=== PATIENT | female | born 1945 | race Caucasian/White ===

== ENCOUNTER → 2018-07-29 | Outpatient (CLI) | payer MEDICARE ==
--- NOTE | 2018-07-30 11:22 | MM ---
Reason for exam: screening (asymptomatic). Last mammogram was performed 1 year and 3 months ago. History: Patient is postmenopausal. Family history of breast cancer in maternal aunt at age 50. Benign right mammotome panel of the right breast, June 04, 2005. Took estrogen for 6 years. Physical Findings: A clinical breast exam by your physician is recommended on an annual basis and results should be correlated with mammographic findings. MG 3D Screening Mammo W/Cad Bilateral CC and MLO view(s) were taken. Prior study comparison: April 26, 2017, mammogram, performed at [place]. March 30, 2016, mammogram, performed at [place]. December 15, 2014, mammogram, performed at [place]. The breast tissue is heterogeneously dense. This may lower the sensitivity of mammography. There are benign appearing round vascular calcifications bilaterally. Previous mammotome biopsy in the right breast. There is chronic nodularity bilaterally. There is no discrete abnormality. ASSESSMENT: Benign, BI-RAD 2 RECOMMENDATION: Routine screening mammogram of both breasts in 1 year.
== END | disposition home or self-care (01) ==
LOC: RADMAMWWP 11:18
PROVIDERS: ATTEND Internal Medicine
DX: Z12.31 Encounter for screening mammogram for malignant neoplasm of breast (principal)
CPT/HCPCS: 77063; 77067

== ENCOUNTER → 2019-10-27 | Outpatient (CLI) | payer MEDICARE ==
--- NOTE | 2019-10-28 12:07 | MM ---
Reason for exam: screening (asymptomatic). Last mammogram was performed 1 year and 3 months ago. History: Patient is postmenopausal. Family history of breast cancer in maternal aunt at age 50. Benign right mammotome panel of the right breast, June 04, 2005. Took estrogen for 6 years. Physical Findings: A clinical breast exam by your physician is recommended on an annual basis and results should be correlated with mammographic findings. MG 3D Screening Mammo W/Cad Bilateral CC and MLO view(s) were taken. Prior study comparison: July 29, 2018, bilateral MG 3d screening mammo w/cad. April 26, 2017, mammogram, performed at [place]. The breast tissue is heterogeneously dense. This may lower the sensitivity of mammography. Finding #1: There is a new 12 mm circumscribed oval mass located 7-8 cm from the nipple in the posterior, central position of the left breast. Finding #2: There are typically benign vascular, round calcifications in both breasts, greater in the right breast. There is a chronic nodularity bilaterally. New finding since July 29, 2018 and April 26, 2017. ASSESSMENT: Incomplete: need additional imaging evaluation, BI-RAD 0 RECOMMENDATION: Ultrasound of the left breast. [facility] will attempt to contact patient to return for ultrasound.
== END | disposition home or self-care (01) ==
LOC: RADMAMWWP 13:00
PROVIDERS: ATTEND Internal Medicine
DX: Z12.31 Encounter for screening mammogram for malignant neoplasm of breast (principal)
CPT/HCPCS: 77063; 77067

== ENCOUNTER → 2019-11-03 | Outpatient (CLI) | payer MEDICARE ==
--- NOTE | 2019-11-03 11:52 | USB ---
Reason for exam: additional evaluation requested from abnormal screening. History: Patient is postmenopausal. Family history of breast cancer in maternal aunt at age 50. Benign right mammotome panel of the right breast, June 04, 2005. Took estrogen for 6 years. Physical Findings: Nurse did not find any significant physical abnormalities on exam. US Breast Workup Limited LT Left limited breast ultrasound including focal area of concern, retroareolar and axilla demonstrates a 1.0 x 0.3 x 1.0cm at 6 o'clock. These results were verbally communicated with the patient and result sheet given to the patient on 11/03/19. ASSESSMENT: Benign, BI-RAD 2 RECOMMENDATION: Return to routine screening mammogram schedule for both breasts.
== END | disposition home or self-care (01) ==
LOC: RADUSWWP 10:19
PROVIDERS: ATTEND Internal Medicine
DX: R92.8 Other abnormal and inconclusive findings on diagnostic imaging of breast (principal)

== ENCOUNTER → 2020-04-11 | Outpatient (CLI) | payer MEDICARE ==
[2020-04-11 18:15] LABS: Chol/HDL Ratio 2.75; LDL Cholesterol,Calculated 106.2 mg/dL (0.0-131.0); VLDL Calculation 14.8 mg/dL (5.00-40.00)
== END | disposition home or self-care (01) ==
LOC: LABWHC1 09:51
PROVIDERS: ATTEND Internal Medicine
DX: I10 Essential (primary) hypertension (principal); E55.9 Vitamin D deficiency, unspecified
CPT/HCPCS: 36415; 80061; 82306

== ENCOUNTER → 2020-04-11 | Outpatient (CLI) | payer MEDICARE ==
[2020-04-11 11:05] LABS: HCT 39.6 % (34.0-46.0); HGB 13.1 gm/dL (11.4-16.0); MCH 29.8 pg (25.0-35.0); MCHC 33.1 g/dL (31.0-37.0); Mean Platelet Volume 6.9; Platelet Count 326 k/uL (150-450); RDW 13.4 % (11.5-15.5); WBC 5.9 k/uL (3.8-10.6)
[2020-04-11 11:20] LABS: ALT 24 U/L (4-34); AST 26 U/L (14-36); African American GFR (CKD) >90 (>60 ml/min/1.73 sqM); Albumin 4.3 g/dL (3.5-5.0); Alkaline Phosphatase 121 U/L (38-126); Anion Gap 8 mmol/L; Blood Urea Nitrogen 24 mg/dL (7-17); Calcium 9.7 mg/dL (8.4-10.2); Carbon Dioxide 25 mmol/L (22-30); Chloride 106 mmol/L (98-107); Glucose 118 mg/dL (74-99); Non-African American GFR(CKD) >90 (>60 ml/min/1.73 sqM); Potassium 4.4 mmol/L (3.5-5.1); Sodium 139 mmol/L (137-145); Total Bilirubin 0.4 mg/dL (0.2-1.3); Total Protein 7.1 g/dL (6.3-8.2)
[2020-04-11 11:25] LABS: INR 0.9 (<1.2); Partial Thromboplastin Time 22.6 sec (22.0-30.0); Prothrombin Time 9.4 sec (9.0-12.0)
[2020-04-11 11:35] LABS: Appearance,Urine Clear (Clear); Bilirubin,Urine Negative (Negative); Blood,Urine Small (Negative); Color,Urine Light Yellow; Glucose,Urine (UA) Negative (Negative); Ketones,Urine Negative (Negative); Leukocyte Esterase,Urine Negative (Negative); Mucus,Urine Rare /hpf; Nitrite,Urine Negative (Negative); PH, Urine 5.5 (5.0-8.0); Protein,Urine Negative (Negative); RBC,Urine 3 /hpf (0-5); Specific Gravity,Urine 1.016 (1.001-1.035); Squamous Epithelial Cell,Urine 1 /hpf (0-4); Urobilinogen,Urine <2.0 mg/dL (<2.0); WBC,Urine 1 /hpf (0-5)
== END | disposition home or self-care (01) ==
LOC: LABPAT 09:49
PROVIDERS: ATTEND Orthopaedic Surgery Sports Medicine
DX: Z01.818 Encounter for other preprocedural examination (principal); Z01.812 Encounter for preprocedural laboratory examination; M17.12 Unilateral primary osteoarthritis, left knee; Z79.01 Long term (current) use of anticoagulants
CPT/HCPCS: 36415; 80053; 81001; 85027; 85610; 85730; 87070

== ENCOUNTER 2020-04-21 12:42 | Day surgery (SDC) | payer MEDICARE ==
[~2020-04-21 12:42] MED LIST: ACETAMINOPHEN TAB 325 MG TAB PO PRN; ACETAMINOPHEN TAB 500 MG TAB PO ONE; GABAPENTIN 300 MG CAP PO ONE; HYDROcodone/APAP 10-325MG 1 EACH TAB PO PRN; HYDROcodone/APAP 5-325MG 1 EACH TAB PO PRN; HYDROmorphone 0.5 MG/0.5 ML SYRINGE IVP PRN; MAGNESIUM HYDROXIDE 2,400 MG/10 ML CUP PO PRN; MELOXICAM 7.5 MG TAB PO ONE; NA PHOS,M-B/NA PHOS,DI-BA 133 ML ENEMA RECTAL PRN; NALOXONE 0.4 MG/ML 1 ML VIAL IV PRN; ONDANSETRON 4 MG/2 ML VIAL IVP ONE; ONDANSETRON 4 MG/2 ML VIAL IVP PRN; ROPIVACAINE 246.25 MG, EPINEPHrine 0.5 MG, KETOROLAC 30 MG, cloNIDine HCL/PF 80 MCG, WA... MISCELLANE ONE; TEMAZEPAM 15 MG CAP PO PRN; TRANEXAMIC ACID 1,000 MG in SODIUM CHLORIDE 0.9% 100 ML IVPB ONE; bisacodyL 10 MG SUPP RECTAL PRN; diazePAM 5 MG TAB PO PRN; traMADol 50 MG TAB PO PRN
[2020-04-21] MEDS: LACTATED RINGERS 1,000 ML IV SCH ×2 (13:25→17:11)
[2020-04-21] MEDS ORDERED: LIDOCAINE 1% (10MG/ML) FOR IV START INTRADERMA ONE (13:26)
[2020-04-21] MEDS ORDERED: ACETAMINOPHEN TAB 500 MG TAB ONE (13:29)
[2020-04-21] MEDS ORDERED: ONDANSETRON 4 MG/2 ML VIAL ONE (13:29)
[2020-04-21] MEDS ORDERED: MIDAZOLAM 2 MG/2 ML VIAL IV ONE (13:52)
[2020-04-21] MEDS ORDERED: fentaNYL (PF) 50 MCG/ML 2 ML AMP IV ONE (13:52)
[2020-04-21] MEDS ORDERED: MIDAZOLAM 2 MG/2 ML VIAL ONE (14:43)
[2020-04-21] MEDS ORDERED: TRANEXAMIC ACID 1,000 MG/10 ML VIAL ONE (14:43)
[2020-04-21] MEDS ORDERED: SODIUM CHLORIDE 0.9% 100 ML BAG ONE (14:43)
[2020-04-21] MEDS ORDERED: PROPOFOL 10 MG/ML 20 ML VIAL IV ONE (14:43)
[2020-04-21] MEDS ORDERED: PHENYLEPHRINE-0.9% NACL SYG 1 MG/10 ML SYRINGE ONE (14:43)
[2020-04-21] MEDS ORDERED: LACTATED RINGERS 1,000 ML IV ONE (15:02)
--- NOTE | 2020-04-21 15:59 | P.ANPRN ---
Procedure Note - Anesthesia - Nerve Block Performed Left Adductor Canal Infusion Time Out Performed: Yes Date of Procedure: 04/21/20 Procedure Start Time: 13:51 Procedure Stop Time: 14:00 Location of Patient: PreOp Indication: Acute Post-Operative Pain, Dx/Pain Location (Left Knee Pain), Requested by Surgeon Sedation Type: Awake Preparation: Sterile Prep, Sterile Dressing Position: Supine Catheter: Indwelling Needle Types: Pajunk Needle Gauge: 21 Ultrasound used to visualize needle placement: Yes Ultrasound used to observe medication spread: Yes Injectate: 0.5% Ropivacaine (see comment for volume) (20ml) Blood Aspirated: No Pain Paresthesia on Injection Noted: No Resistance on Injection: Normal Image Stored and Saved: Yes Events: Uneventful and Well Tolerated
--- NOTE | 2020-04-21 16:49 | XR ---
EXAMINATION TYPE: XR knee limited LT DATE OF EXAM: 04/21/2020 CLINICAL HISTORY: Left knee pain and arthritis status post total knee replacement. TECHNIQUE: Portable AP and crosstable lateral views of the left knee are obtained immediately postop eratively. COMPARISON: None FINDINGS: [place] osseous structures are demineralized. Metallic hardware from total left knee arthrop lasty is seen and appears satisfactory in alignment and position. There is evidence of recent surger y with diffuse subcutaneous gas and soft tissue swelling noted. IMPRESSION: METALLIC HARDWARE FROM TOTAL LEFT KNEE ARTHROPLASTY IS SATISFACTORY IN ALIGNMENT.
[2020-04-21] MEDS: ROPIVACAINE 0.2%-NS ON-Q PUMP 1,090 MG, EMPTY PAIN BALL 1 EACH MISCELLANE PRN ×3 (17:14→17:48)
[2020-04-21] MEDS: ASPIRIN 81 MG PO SCH (20:37)
[2020-04-21] MEDS ORDERED: SENNOSIDES-DOCUSATE SODIUM 1 EACH TAB PO SCH (21:00)
--- NOTE | 2020-04-21 22:04 | OP ---
OPERATIVE REPORT DATE OF PROCEDURE: 04/21/2020 SURGEON: Jarad Jules M.D. LEGAL PROCESS SPECIALIST: Stanley Tony PA-C. PREOPERATIVE DIAGNOSIS: Left knee osteoarthrosis. POSTOPERATIVE DIAGNOSIS: Left knee osteoarthrosis. OPERATION: Left total knee arthroplasty. ANESTHESIA: Spinal with sedation. ESTIMATED BLOOD LOSS: 50 mL. TOURNIQUET: Tourniquet time was 40 minutes at 250 mmHg. COMPLICATIONS: None apparent. DRAINS: None. DISPOSITION: Post-Anesthesia Care Unit INDICATIONS: Willow is a very pleasant 74-year-old female with longstanding history of left knee pain. History and physical examination are consistent with advanced left knee osteoarthrosis. She has been through significant nonoperative management up to this point. Further treatment options were discussed, and she decided to go forward with left total knee arthroplasty. The risks of procedure were discussed with her in detail. These risks include but are not limited to risk of infection, nerve damage, bleeding, pain, and a small risk of deep vein thrombosis which could lead to fatal pulmonary embolism. There is also a risk of loosening of the implant which could require revision operation. The patient understands these risks. All of her questions were answered to her satisfaction. Appropriate informed consent was obtained. DESCRIPTION OF THE PROCEDURE: The patient was identified in the preoperative holding area. Surgical site was marked by both the patient and myself. She was given 2 grams of Ancef IV for prophylactic purposes. She was then transferred to the operative suite. She was placed supine on the operating room table. A spinal anesthetic was then administered and dosed per the anesthesia department without apparent complication. Examination under anesthesia was then performed. The patient was 2 to 3 degrees shy of full extension. She had 100 degrees of flexion, and the medial collateral ligament, lateral collateral ligament and posterior cruciate ligaments were stable. Tourniquet was then placed high on the left upper thigh, well padded in preparation for surgery. The patient's left lower extremity was then prepped and draped in the usual sterile fashion. A standard surgical pause was then undertaken to ensure that we were operating on the correct site and that appropriate preoperative antibiotics had been given. All staff in the room were in agreement and we proceeded. The outlines of the patella were marked with a surgical pen. A planned 12 cm vertical incision centered over the patella was marked with a surgical pen. The leg was then exsanguinated with an Esmarch dressing. The knee was then flexed and the tourniquet was inflated to 250 mmHg. The total tourniquet time for the procedure was 40 minutes. Incision was then made with a 10-blade scalpel. Dissection was carried down sharply to the overlying fascia. Great care was taken to minimize the skin flaps. The knee was then exposed using a standard medial parapatellar approach. A small cuff of quadriceps tendon was then left for suturing. She was in a bit of varus preoperatively. A standard medial release was then made. Superficial medial collateral ligament was dissected off of the bone and around to the posterior aspect of the proximal tibia. The medial meniscus was then excised as well. The lateral meniscus was also released anteriorly. The leg was then externally rotated. The patella was everted. The knee was flexed. The retractors were then placed to protect the collateral ligaments. I then proceeded to remove the infrapatellar fat pad. This was excised sharply tangentially with the fibers of the patellar tendon. I then proceeded to remove the peripheral osteophytes. This was done with a rongeur. I then proceeded with the distal femoral resection. She did have near-full extension. A planned 9 mm resection was then done. The femoral canal was then entered in the midline of the femur approximately 10 mm anterior to the origin of the posterior cruciate ligament. The wenceslao was then advanced down to the center of the femur and placed intramedullary. Based on the preoperative radiographs, the angle between the anatomic and mechanical axis of the femur was approximately 4-5 degrees. The valgus angle of the distal femoral cutting guide was then set at 4 degrees for the left knee. The distal femoral cutting guide was then advanced over the intramedullary wenceslao. This was seated firmly against the femur. I then, as mentioned, planned to take 9 mm off the distal femur. The cutting block was then secured onto the femur with pins. The jig was then removed and the distal femoral cut was made through the slot of the block. The pins were then removed and the distal femoral cutting block was removed. The accuracy of the distal femoral cuts was checked with 2 flat bars. I then proceeded with femoral sizing. The posterior referencing sizing guide was held firmly against the resected distal surface of the femur. The posterior condyles were resting on the posterior plane of the guide. The sizing stylus was then placed onto the anterior femur. The size was measured as a size 5. I then assessed for femoral rotation. The plan was for 3 degrees of external rotation. Three degrees of external rotation was placed onto the jig. These holes were then marked. I then confirmed the rotation by 3 separate methods. This was done using the epicondylar axis as well as [place] line and posterior referencing. It was deemed that the external rotation was proper. I then went forward with placing the femoral cutting block. This was placed over the previously placed pin holes. The [place] wing was then placed onto the anterior slots to ensure that we would not notch the anterior femur with the anterior femoral cut. I then proceeded with the anterior femoral cut. This was flush with the anterior cortex of the femur. Posterior cuts were then made followed by the anterior chamfer cut, and then the posterior chamfer cut. The cutting block was then removed. Throughout the resection, the collateral ligaments were protected with retractors. I then placed a trial size 5 femur. It was slightly wide medial to lateral, but the narrow was appropriate and fit flush with the distal end of the femur. The drill holes were then made. I then proceeded with the tibial cut. I planned for a cruciate-retaining knee. The guide was placed and set for varus, valgus and for slope. The height was set for an approximate 2 mm resection from the medial tibial plateau, which was the lower side. I was happy with the alignment and the amount of resection. The cutting block was then pinned to the proximal tibia. The alignment wenceslao was removed and the proximal tibia was resected with a reciprocating saw. Again this was done with retractors protecting the collateral ligaments as well as the posterior cruciate ligament. I then proceeded to evaluate the flexion and extension gaps. A 10 mm block was then placed. The flexion and extension gaps were equal. I then proceeded with resection of the posterior osteophytes. She had very minimal posterior osteophytes. This was done using a curved osteotome. This resected the posterior osteophytes, and posterior capsule stripping was done off the posterior aspect of the femur at this time. The osteophytes were then removed. I then proceeded with resection of the patella. The thickness of the patella was measured using the caliper. The thickness was 22 mm. Thickness of the anticipated patellar dome was then taken into account. Resection was then performed and confirmed to be equal in 4 quadrants using a caliper. Approximately 14 mm of bone remained after resection. A 26 x 7.5 standard patellar trial was then placed. The holes were drilled and the trial was then placed. I then proceeded with sizing the tibial plate. A size C tibial plate fit very nicely. I then placed the trial femur and the tibial tray and the patellar button. A 10 mm trial tibial insert was also placed. The components fit very nicely. She had full extension and flexion. The extension and flexion gaps were equal and stable to both varus and valgus stress. The patella tracked appropriately. Tibial tray rotation was then marked with a Bovie. This was externally rotated properly. I then proceeded with tibial preparation. I first drilled the femoral holes and removed the femoral component. The tibial tray was then set for proper external rotation as well as mediolateral placement onto the tibia. It was then pinned into place. I then proceeded with punching the keel. I then decided to proceed with cementing of all of our components. The knee was thoroughly irrigated with sterile saline solution via pulse lavage. The lateral geniculate artery was identified and cauterized. All blood was removed from the bone of the tibia, femur and patella with pulse lavage. I then proceeded with cementing. Two packs of antibiotic bone cement were prepared on the back table by the endoscopy tech. I then proceeded with cementing of the tibia first. The cement was impacted into the keel as well as deeply seated into the bone. A second coat of cement was then placed. The tibia was then impacted into place. Excess cement was removed with Maye's and jokers. I then proceeded with cementing of the femoral component. The femoral component was also cemented using standard technique. Excess cement was removed. A 10 mm trial insert was then placed into the knee. It was brought into full extension with a constant axial load placed until the cement had hardened. The patellar component was then cemented. This was held firmly with a compressive device until the cement had dried. When the cement had dried, the knee was taken out of extension. All excess cement was removed from around the prosthesis. I then trialed the knee with a 10 mm insert. The flexion and extension gaps were appropriate. The knee was stable. It came into full extension. I decided to go forward with a 10 mm cross-linked cruciate-retaining tibial insert. Polyethylene was then placed onto the tray and locked into place. The knee was then reduced. The knee was again further irrigated with sterile saline solution with antibiotic added. The tourniquet was then deflated. The total tourniquet time for the procedure was 40 minutes at 250 mmHg. Final components were a Alice Persona size 5 narrow cruciate-retaining femoral component, a size C tibial tray, a 10 mm medial- congruent cruciate-retaining polyethylene insert, and a 26 x 7.5 mm patella. I then proceeded with closure. Again the knee was thoroughly irrigated. The quadriceps tendon and the medial retinaculum were reapproximated with #2 Ethibond suture. The extensor mechanism was then closed with a running #2 Quill suture. Subcutaneous tissues were closed with 2-0 Vicryl interrupted suture. The skin was closed with a running 3-0 Quill suture. Dermabond was applied to the incision. Sterile compressive dressings were then applied. All sponge and needle counts were deemed correct prior to closure. The patient tolerated the procedure without apparent complication. She was transferred to the recovery room in stable condition. MMODL / IJN: [id number] /
[2020-04-22] MEDS: LACTATED RINGERS 1,000 ML IV SCH ×4 (01:41→08:46)
--- NOTE | 2020-04-22 06:11 | P.PN ---
Progress Note - Text Progress Note Date: 04/22/20 74-year-old female status post total knee arthroplasty with On-Q pain pump. Overall doing well VAS 1/10 in severity. She's been ambulating, good range of motion with her knee already. Tolerating diet well. Patient progressing well. Surgical incision and On-Q insertion site looks clean dry and intact
[2020-04-22 06:16] LABS: Basophils % (A) 0 %; Eosinophils # (A) 0.2 k/uL (0-0.7); Eosinophils % (A) 2 %; HCT 34.2 % (34.0-46.0); HGB 11.1 gm/dL (11.4-16.0); Lymphocytes # (A) 1.2 k/uL (1.0-4.8); Lymphocytes % (A) 15 %; MCH 29.7 pg (25.0-35.0); MCHC 32.5 g/dL (31.0-37.0); MCV 91.3 fL (80.0-100.0); Mean Platelet Volume 6.9; Monocytes # (A) 0.5 k/uL (0-1.0); Monocytes % (A) 6 %; Neutrophils # (A) 6.4 k/uL (1.3-7.7); Neutrophils % (A) 76 %; Platelet Count 244 k/uL (150-450); RBC 3.74 m/uL (3.80-5.40); RDW 13.5 % (11.5-15.5); WBC 8.5 k/uL (3.8-10.6)
[2020-04-22] MEDS: ASPIRIN 81 MG PO SCH (08:51)
--- NOTE | 2020-04-22 09:15 | P.DS ---
Providers Expected date of discharge: 04/22/20 Attending physician: Jarad Jules Consults: 04/21/20 12:21 Consult Physician Routine Consulting Provider: Olivia Bartlett Consult Reason/Comments: post op medical management Do you want consulting provider notified?: Yes Primary care physician: Stated None - Discharge Diagnosis(es) (1) S/P total knee arthroplasty Patient was admitted to the OR on 04/21/2020 to undergo a left total knee arthroplasty. She had failed conservative measures as an outpatient and desired to proceed with elective surgery after given informed consent. She underwent the above procedure which she tolerated well without complication. Postoperative hospital course has remained without complication. On day of discharge she is afebrile, vital signs stable, labs within acceptable ranges, tolerating by mouth meds and diet, voiding without difficulty, positive flatus, denies abdominal pain or calf pain, pain is controlled on oral pain medication and has no new complaints. Wound is benign, neurovascular status is intact, calf is soft and nontender, abdomen soft and nontender. Review of systems is negative for numbness, tingling, fever, chills, chest pain, shortness of breath, nausea, vomiting, dizziness, headaches, slurred speech or other Current Visit: Yes Status: Acute Priority: Medium Procedures: Left TKA Patient Condition at Discharge: Good Plan - Discharge Summary Discharge Rx Participant: Yes New Discharge Prescriptions: New Aspirin [Adult Low Dose Aspirin EC] 81 mg PO BID #60 tablet. HYDROcodone/APAP 7.5-325MG [[place] 7.5-325] 1 - 2 each PO Q6HR PRN #56 tab PRN Reason: Pain No Action Cholecalciferol (Vitamin D3) [Vitamin D3] 50 mcg PO DAILY Naproxen Sodium [Aleve] 220 mg PO Q12HR PRN PRN Reason: Pain traZODone HCL 50 mg PO HS Multivitamins, Thera [Multivitamin (formulary)] 1 tab PO DAILY Simvastatin [Zocor] 20 mg PO DAILY Sertraline [Zoloft] 50 mg PO DAILY Lisinopril 20 mg PO DAILY Aspirin [Adult Low Dose Aspirin EC] 81 mg PO DAILY Discharge Medication List Aspirin [Adult Low Dose Aspirin EC] 81 mg PO DAILY 04/20/20 [History] Cholecalciferol (Vitamin D3) [Vitamin D3] 50 mcg PO DAILY 04/20/20 [History] Lisinopril 20 mg PO DAILY 04/20/20 [History] Multivitamins, Thera [Multivitamin (formulary)] 1 tab PO DAILY 04/20/20 [History] Naproxen Sodium [Aleve] 220 mg PO Q12HR PRN 04/20/20 [History] Sertraline [Zoloft] 50 mg PO DAILY 04/20/20 [History] Simvastatin [Zocor] 20 mg PO DAILY 04/20/20 [History] traZODone HCL 50 mg PO HS 04/20/20 [History] Aspirin [Adult Low Dose Aspirin EC] 81 mg PO BID #60 tablet. 04/22/20 [Rx] HYDROcodone/APAP 7.5-325MG [[place] 7.5-325] 1 - 2 each PO Q6HR PRN #56 tab 04/22/20 [Rx] Follow up Appointment(s)/Referral(s): Jarad Jules MD [STAFF PHYSICIAN] - 10 Days Ambulatory/Diagnostic Orders: Jl [DME.AMB1] Location: None Selected Activity/Diet/Wound Care/Special Instructions: Keep wound clean and dry Take meds as directed Follow-up with Dr. Jules in office Weight bear as tolerated May shower in 3 days if no bleeding Discharge Disposition: HOME WITH HOME HEALTH SERVICES
[2020-04-22 09:19] VITALS: BP 122/73; PULSE 71; RESP 16; TEMP 98; BMI 23.8
[2020-04-22] MEDS ORDERED: MULTIVITAMINS, THERA 1 EACH TAB PO SCH (12:00)
--- NOTE | 2020-04-22 14:24 | P.CONS ---
History of Present Illness - Reason for Consult Examinations regarding antidepressant medications - History of Present Illness Patient is a pleasant 74-year-old female admitted for elective left knee arthroplasty, underwent surgery. Patient didn't pass gas did not move her bowels. Her Pain is very well controlled. Patient is being discharged on 81 mg of aspirin twice a day. Patient denied any fever chills nausea vomiting dysuria patient doesn't have a surgical drain doesn't have a Smith catheter at this time. Patient is being discharged today patient blood pressures within normal limits patient didn't take her lisinopril is treated today patient on 20 mg of lisinopril. Review of Systems REVIEW OF SYSTEMS: CONSTITUTIONAL: No fever, no malaise, no fatigue. HEENT: No recent visual problems or hearing problems. Denied any sore throat. CARDIOVASCULAR: No chest pain, orthopnea, PND, no palpitations, no syncope. PULMONARY: No shortness of breath, no cough, no hemoptysis. GASTROINTESTINAL: No diarrhea, no nausea, no vomiting, no abdominal pain. NEUROLOGICAL: No headaches, no weakness, no numbness. HEMATOLOGICAL: Denies any bleeding or petechiae. GENITOURINARY: Denies any burning micturition, frequency, or urgency. MUSCULOSKELETAL/RHEUMATOLOGICAL: Denies any joint pain, swelling, or any muscle pain. ENDOCRINE: Denies any polyuria or polydipsia. The rest of the 14-point review of systems is negative. Past Medical History Past Medical History: Hyperlipidemia, Hypertension, Osteoarthritis (OA) History of Any Multi-Drug Resistant Organisms: None Reported Past Surgical History: Hysterectomy, Orthopedic Surgery Additional Past Surgical History / Comment(s): bunionectomy ehsan feet Past Anesthesia/Blood Transfusion Reactions: Motion Sickness Past Psychological History: Depression Smoking Status: Former smoker Past Alcohol Use History: None Reported Additional Past Alcohol Use History / Comment(s): quit smoking 1987, started smoking age 18 Past Drug Use History: None Reported - Past Family History Father Family Medical History: Cancer Medications and Allergies Home Medications Medication Instructions Recorded Confirmed Type Aspirin [Adult Low Dose Aspirin EC] 81 mg PO DAILY 04/20/20 04/21/20 History Cholecalciferol (Vitamin D3) 50 mcg PO DAILY 04/20/20 04/21/20 History [Vitamin D3] Lisinopril 20 mg PO DAILY 04/20/20 04/21/20 History Multivitamins, Thera [Multivitamin 1 tab PO DAILY 04/20/20 04/21/20 History (formulary)] Naproxen Sodium [Aleve] 220 mg PO Q12HR PRN 04/20/20 04/21/20 History Sertraline [Zoloft] 50 mg PO DAILY 04/20/20 04/21/20 History Simvastatin [Zocor] 20 mg PO DAILY 04/20/20 04/21/20 History traZODone HCL 50 mg PO HS 04/20/20 04/21/20 History Aspirin [Adult Low Dose Aspirin EC] 81 mg PO BID #60 tablet. 04/22/20 Rx HYDROcodone/APAP 7.5-325MG [Wayland 1 - 2 each PO Q6HR PRN #56 tab 04/22/20 Rx 7.5-325] Allergies Allergy/AdvReac Type Severity Reaction Status Date / Time No Known Allergies Allergy Verified 04/21/20 13:13 Physical Exam Vitals: Vital Signs Temp Pulse Pulse Resp BP Pulse Ox 04/22/20 07:00 98.0 F 71 16 122/73 90 L 04/22/20 01:36 97.3 F L 65 111/66 92 L 04/21/20 19:55 67 91/61 87 L 04/21/20 19:40 64 95/64 88 L 04/21/20 19:25 65 113/75 90 L 04/21/20 19:10 97.3 F L 69 124/81 94 L 04/21/20 18:55 77 143/84 04/21/20 18:40 71 110/73 92 L 04/21/20 18:25 75 121/79 94 L 04/21/20 18:10 74 132/82 86 L 04/21/20 17:55 66 133/77 04/21/20 17:40 77 137/80 97 04/21/20 17:26 97.6 F 66 128/69 95 04/21/20 17:00 69 14 134/65 96 04/21/20 16:46 70 12 135/66 100 04/21/20 16:30 75 12 110/67 95 04/21/20 16:23 97.8 F 77 12 118/65 95 04/21/20 14:24 54 L 18 100/62 95 Intake and Output 04/21/20 04/22/20 04/22/20 22:59 06:59 14:59 Intake Total 1050 200 Output Total 50 Balance 1000 200 Intake: IV 1050 Oral 200 Output: Estimated Blood Loss 50 Other: Voiding Method Toilet # Voids 1 1 1 Weight 57.2 kg PHYSICAL EXAMINATION: GENERAL: The patient is alert and oriented x3, not in any acute distress. Well developed, well nourished. HEENT: Pupils are round and equally reacting to light. EOMI. No scleral icterus. No conjunctival pallor. Normocephalic, atraumatic. No pharyngeal erythema. No thyromegaly. CARDIOVASCULAR: S1 and S2 present. No murmurs, rubs, or gallops. PULMONARY: Chest is clear to auscultation, no wheezing or crackles. ABDOMEN: Soft, nontender, nondistended, normoactive bowel sounds. No palpable organomegaly. MUSCULOSKELETAL: No joint swelling or deformity. EXTREMITIES: No cyanosis, clubbing, or pedal edema. NEUROLOGICAL: Gross neurological examination did not reveal any focal deficits. SKIN: No rashes. Results CBC & Chem 7: 04/22/20 05:40 Labs: Abnormal Lab Results - Last 24 Hours (Table) 04/22/20 Range/Units 05:40 RBC 3.74 L (3.80-5.40) m/uL Hgb 11.1 L (11.4-16.0) gm/dL Assessment and Plan Plan: -Hypertension: Patient is expected to have preoperative hypertension as patient not to take lisinopril today and tomorrow can started from thereafter once her blood pressure starts going up. -Left knee arthroplasty: Pain management due to prophylaxis as per primary service -Hyperlipidemia -Depression. Patient can be discharged from medical perspective
== END 2020-04-22 14:54 | disposition home health service (06) ==
LOC: OR 12:42 → 4SSUR 16:24 → OR 04-22 14:54
PROVIDERS: ATTEND Orthopaedic Surgery Sports Medicine
DX: M17.12 Unilateral primary osteoarthritis, left knee (principal); M25.762 Osteophyte, left knee; E78.5 Hyperlipidemia, unspecified; I10 Essential (primary) hypertension; F32.9 Major depressive disorder, single episode, unspecified; K08.109 Complete loss of teeth, unspecified cause, unspecified class; Z79.899 Other long term (current) drug therapy; Z79.82 Long term (current) use of aspirin; Z79.1 Long term (current) use of non-steroidal anti-inflammatories (NSAID); Z90.710 Acquired absence of both cervix and uterus; Z98.890 Other specified postprocedural states; Z87.39 Personal history of other diseases of the musculoskeletal system and connective tissue; Z87.898 Personal history of other specified conditions; Z87.891 Personal history of nicotine dependence; Z80.9 Family history of malignant neoplasm, unspecified
CPT/HCPCS: 27447; 97110; 97162; 64448; 76942; 85025; 88300; 73560; C1776; C1713; J2250; J0171; J0690 ×2; J2405; J3010; J1885; J2795 ×2; J2370; J2704; J0735

== ENCOUNTER → 2020-07-20 | Outpatient (CLI) | payer MEDICARE ==
[2020-07-20 15:16] LABS: HGB 13.7 gm/dL (11.4-16.0); MCH 28.3 pg (25.0-35.0); MCV 88.5 fL (80.0-100.0); Mean Platelet Volume 6.7; Platelet Count 337 k/uL (150-450); RBC 4.86 m/uL (3.80-5.40); RDW 13.7 % (11.5-15.5)
[2020-07-20 15:22] LABS: ALT 27 U/L (4-34); AST 29 U/L (14-36); African American GFR (CKD) >90 (>60 ml/min/1.73 sqM); Albumin 4.4 g/dL (3.5-5.0); Alkaline Phosphatase 134 U/L (38-126); Anion Gap 8 mmol/L; Blood Urea Nitrogen 21 mg/dL (7-17); Calcium 10.1 mg/dL (8.4-10.2); Carbon Dioxide 25 mmol/L (22-30); Chloride 106 mmol/L (98-107); Glucose 226 mg/dL (74-99); Non-African American GFR(CKD) 90 (>60 ml/min/1.73 sqM); Sodium 139 mmol/L (137-145); Total Bilirubin 0.3 mg/dL (0.2-1.3); Total Protein 7.3 g/dL (6.3-8.2)
[2020-07-20 15:24] LABS: INR 0.9 (<1.2); Partial Thromboplastin Time 22.4 sec (22.0-30.0); Prothrombin Time 9.4 sec (9.0-12.0)
[2020-07-20 16:05] LABS: Appearance,Urine Clear (Clear); Bacteria,Urine Few /hpf; Bilirubin,Urine Negative (Negative); Blood,Urine Trace (Negative); Color,Urine Yellow; Glucose,Urine (UA) Negative (Negative); Hyaline Casts,Urine 3 /lpf (0-2); Ketones,Urine Negative (Negative); Leukocyte Esterase,Urine Negative (Negative); Mucus,Urine Few /hpf; Nitrite,Urine Negative (Negative); PH, Urine 5.5 (5.0-8.0); Protein,Urine Trace (Negative); RBC,Urine 2 /hpf (0-5); Specific Gravity,Urine 1.026 (1.001-1.035); Squamous Epithelial Cell,Urine 3 /hpf (0-4); Urobilinogen,Urine <2.0 mg/dL (<2.0); WBC,Urine 2 /hpf (0-5)
== END | disposition home or self-care (01) ==
LOC: LABPAT 14:21
PROVIDERS: ATTEND Orthopaedic Surgery Sports Medicine
DX: Z01.818 Encounter for other preprocedural examination (principal); M17.11 Unilateral primary osteoarthritis, right knee; Z79.01 Long term (current) use of anticoagulants; M25.569 Pain in unspecified knee; Z01.812 Encounter for preprocedural laboratory examination
CPT/HCPCS: 36415; 80053; 81001; 85027; 85610; 85730; 87070

== ENCOUNTER 2020-07-28 07:40 | Day surgery (SDC) | payer MEDICARE ==
[2020-07-26 15:24] VITALS: BMI 23.8
[~2020-07-28 07:40] MED LIST changes: -ACETAMINOPHEN TAB 325 MG TAB PO PRN; +DEXAMETHASONE SOD PHOSPHATE 10 MG/ML 1 ML VIAL IV ONE; -HYDROcodone/APAP 10-325MG 1 EACH TAB PO PRN; -HYDROcodone/APAP 5-325MG 1 EACH TAB PO PRN; +LACTATED RINGERS 1,000 ML IV SCH; -MAGNESIUM HYDROXIDE 2,400 MG/10 ML CUP PO PRN; +MIDAZOLAM 2 MG/2 ML VIAL IV PRN; -NA PHOS,M-B/NA PHOS,DI-BA 133 ML ENEMA RECTAL PRN; -NALOXONE 0.4 MG/ML 1 ML VIAL IV PRN; -ONDANSETRON 4 MG/2 ML VIAL IVP PRN; -TEMAZEPAM 15 MG CAP PO PRN; -bisacodyL 10 MG SUPP RECTAL PRN; -diazePAM 5 MG TAB PO PRN; -traMADol 50 MG TAB PO PRN
[2020-07-28] MEDS ORDERED: SODIUM CHLORIDE 0.9% 100 ML BAG ONE (09:17)
[2020-07-28] MEDS ORDERED: TRANEXAMIC ACID 1,000 MG/10 ML VIAL ONE (09:17)
[2020-07-28] MEDS ORDERED: MIDAZOLAM 2 MG/2 ML VIAL ONE (09:17)
[2020-07-28] MEDS ORDERED: fentaNYL (PF) 50 MCG/ML 2 ML AMP ONE (09:17)
[2020-07-28] MEDS ORDERED: NA PHOS,M-B/NA PHOS,DI-BA 133 ML ENEMA RECTAL PRN (09:19)
[2020-07-28] MEDS ORDERED: TEMAZEPAM 15 MG CAP PO PRN (09:19)
[2020-07-28] MEDS ORDERED: bisacodyL 10 MG SUPP RECTAL PRN (09:19)
[2020-07-28] MEDS ORDERED: NALOXONE 0.4 MG/ML 1 ML VIAL IV PRN (09:19)
[2020-07-28] MEDS ORDERED: diazePAM 5 MG TAB PO PRN (09:19)
[2020-07-28] MEDS ORDERED: HYDROcodone/APAP 5-325MG 1 EACH TAB PO PRN (09:19)
[2020-07-28] MEDS ORDERED: MAGNESIUM HYDROXIDE 2,400 MG/10 ML CUP PO PRN (09:19)
[2020-07-28] MEDS ORDERED: traMADol 50 MG TAB PO PRN (09:19)
[2020-07-28] MEDS ORDERED: ACETAMINOPHEN TAB 325 MG TAB PO PRN (09:19)
[2020-07-28] MEDS ORDERED: HYDROmorphone 0.5 MG/0.5 ML SYRINGE IVP PRN ×3 (09:19)
[2020-07-28] MEDS ORDERED: ONDANSETRON 4 MG/2 ML VIAL IVP PRN (09:19)
[2020-07-28] MEDS ORDERED: ceFAZolin 3,000 MG in SODIUM CHLORIDE 0.9% IRRIGATIO 3,000 ML IRRIGATION ONE (09:22)
[2020-07-28] MEDS ORDERED: ROPIVACAINE 0.2%-NS ON-Q PUMP 1,090 MG, EMPTY PAIN BALL 1 EACH MISCELLANE PRN (10:50)
--- NOTE | 2020-07-28 11:32 | P.ANPRN ---
Procedure Note - Anesthesia - Nerve Block Performed Right Adductor Canal Infusion Time Out Performed: Yes Date of Procedure: 07/28/20 Procedure Start Time: : Procedure Stop Time: :34 Location of Patient: PreOp Indication: Acute Post-Operative Pain, Requested by Surgeon Sedation Type: Sedate with meaningful contact maintained Preparation: Sterile Prep, Sterile Dressing Position: Supine Catheter: Indwelling Needle Types: Pajunk Needle Gauge: 21 Ultrasound used to visualize needle placement: Yes Ultrasound used to observe medication spread: Yes Blood Aspirated: No Pain Paresthesia on Injection Noted: No Resistance on Injection: Normal Image Stored and Saved: Yes Events: Uneventful and Well Tolerated (ropi .5% 20cc plus dexamethasone 4mg)
--- NOTE | 2020-07-28 11:52 | OP ---
OPERATIVE REPORT DATE OF PROCEDURE: 07/28/2020. SURGEON: Jarad Jules MD. ENGINEERING TECHNICAL ANALYST: VENKATA Peacock. PREOPERATIVE DIAGNOSIS: Right knee osteoarthrosis. POSTOPERATIVE DIAGNOSIS: Right knee osteoarthrosis. OPERATION: Right total knee arthroplasty. ANESTHESIA: Spinal sedation. ESTIMATED BLOOD LOSS: 100 mL. TOURNIQUET: Tourniquet time was 38 minutes at 250 mmHg. COMPLICATIONS: None apparent. DRAINS: None. DISPOSITION: Postanesthesia care unit. INDICATIONS: Willow is a very pleasant 74-year-old female with longstanding history of right knee pain. History and physical examination are consistent with advanced right knee osteoarthrosis. She has been through significant nonoperative management up to this point. Further treatment options were discussed and she decided to go for the right total knee arthroplasty. The risks of procedure were discussed with her in detail. These risks include, but are not limited to risk of infection, nerve damage, bleeding, pain, and a small risk of deep vein thrombosis which could lead to fatal pulmonary emboli. There is also risk of loosening of the implant which could require revision operation. The patient understands these risks. All her questions were answered to her satisfaction. An appropriate informed consent was obtained. DESCRIPTION OF PROCEDURE: Patient identified in the preoperative holding area. Surgical site was marked by both the patient and myself. She was given 2 g of Ancef IV prophylactic purposes. She was then transferred to the operative suite. She was placed supine on the operative table. Spinal anesthetic was then administered and dosed per the Anesthesia Department without apparent complication. Examination under anesthesia was then performed. The patient was 2-3 degrees shy of full extension. She had 105 degrees of flexion and the medial collateral ligament, lateral collateral ligament, posterior cruciate ligaments were stable. Tourniquet was then placed high on the right upper thigh, well-padded in preparation for surgery. The patient's right lower extremity was than prepped and draped in usual sterile fashion. Standard surgical pause undertaken to ensure the were operating on the correct site and that appropriate preoperative antibiotics have been given. All staff in the room were in agreement and we proceeded. The outlines of the patella marked with surgical pen. A planned 10 to 12 cm vertical incision centered over the patella was marked with surgical pen. The leg was then exsanguinated with an Esmarch dressing. The knee was then flexed and tourniquet was inflated to 250 mmHg. The total tourniquet time for the procedure was 38 minutes. Incision was then made with a 10 blade scalpel. Dissection carried down sharply to overlying fascia. Great care was taken to minimize the skin flaps. The knee was then exposed using a standard medial parapatellar approach. A small cuff of quadriceps tendon was then left for suturing. She was in a bit of varus preoperatively. A standard medial release was then made. Superficial medial collateral ligament was dissected off the bone around to the posterior aspect of the proximal tibia. The medial meniscus was then excised as well. The lateral meniscus was also released anteriorly. The leg was then externally rotated. The patella was everted. The knee was flexed. Retractors were then placed to protect the collateral ligaments. I then proceeded to remove the infrapatellar fat pad. This was excised sharply tangentially with fibers of the patellar tendon. I then proceeded to remove peripheral osteophytes. This is done with a rongeur. I then proceeded with the distal femoral resection. She did have near full extension. A planned 9 mm resection was then done. The femoral canal was then entered in the midline of the femur, approximately 10 mm anterior to the origin of the posterior cruciate ligament. The wenceslao was then advanced down the center of the femur and placed intramedullary. Based on the preoperative radiographs, the angle between the anatomic and mechanical axis of the femur was approximately 4-5 degrees. The valgus angle was femoral cutting guide was then set at 4 degrees for the right knee. This distal femoral cutting guide was then advanced over the intramedullary wenceslao. This was seated firmly against the femur. Then as mentioned planned to take 9 mm off the distal femur. The cutting block was then secured onto the femur with pins. The jig was then removed. The distal femoral cut was made through the slot of the block. The pins were then removed. The distal cutting block was removed. The accuracy of the distal femoral cuts was checked with 2 flat bars. I then proceeded with femoral sizing. Posterior referencing sizing guide was held firmly against the resected distal surface of the femur. Posterior condyles were resting on the posterior plane of the guide. The sizing stylus was then placed onto the anterior femur. The size was measured as a size 5. I then assessed for femoral rotation. The plan was for 3 degrees external rotation. Three degrees external rotation was placed onto the jig. These holes were then marked. I then confirmed the rotation by 3 separate methods. This was done using epicondylar axis as well as Whitesides line and posterior referencing. Deemed that the external rotation was proper. I then went forward placing the femoral cutting block. This was placed over the previously placed pin holes. The Guillermo wing was then placed on the anterior slots to ensure that we would not notch the anterior femur with the anterior femoral cut. I then proceed with the anterior focal femoral cut. This was flush with the anterior cortex of the femur. The posterior cuts were then made followed by the anterior chamfer cut, then the posterior chamfer cut. The cutting block was then removed. Throughout the resection, the collateral ligaments were protected with retractors. I then placed a trial size 5 femur. It was slightly wide mediolateral but the narrow fit nicely and fit flush with the distal end of the femur. The drill holes were then made. I then proceeded with the tibial cut. I planned for cruciate retaining knee. The guide was placed and set for varus valgus and then for slope. Height was set for approximate 2 mm resection from the medial tibial plateau which was the lower side. I was happy with the alignment and the amount of resection. The cutting block was then pinned to the proximal tibia. The alignment wenceslao was removed. The proximal tibia was resected with a reciprocating saw. Again this was done with retractors protecting the collateral ligaments as well as the posterior cruciate ligament. I then proceeded to evaluate the flexion and extension gaps. A 10 mm block was then placed. The flexion-extension gaps were equal. I then proceed with the resection of the posterior osteophytes. She had very minimal posterior osteophytes. This was done using a curved osteotome. This resected the posterior osteophytes and posterior capsule stripping was done off the posterior aspect of the femur at this time. The osteophytes were then removed. I then proceeded with resection of the patella. The thickness of patella was measured using the caliper. The thickness was 22 mm. The thickness of the anticipated patellar dome was taken into account. Resection was then performed and confirmed to be equal in 4 quadrants using a caliper. Approximately 14 mm of bone remained after resection. A 26 x 7.5 standard patellar trial was then placed. The holes drilled. The trial was then placed. I then proceeded with sizing tibial plate. A size C tibial plate fit very nicely. I then placed the trial femur, the tibial tray and patellar button. A 10 mm trial tibial insert was also placed. The components fit very nicely. She had full extension and flexion. The extension and flexion gaps were equal and stable to both varus and valgus stress. The patella tracked appropriately. Tibial tray was then marked with a Bovie. This was extra externally rotated properly. I then proceeded with tibial preparation. First drilled the femoral holes removed femoral component. The tibial tray was then set for proper external rotation as well as mediolateral placement onto the tibia. It was then pinned into place. I then proceeded with punching the keel. I then decided to proceed with cementing of all of our components. The knee was thoroughly irrigated with sterile saline solution with a via pulse lavage. The lateral geniculate artery was identified and cauterized. All the blood was removed from the bone of the tibia,. femur, and patella with pulse lavage. I then proceed with cementing. Two packs of antibiotic bone cement were prepared on the back table by the surgical training specialist. I then proceeded with cementing the tibia first. The cement was impacted into the keel as well as deeply seated in the bone. A second coat of cement was then placed. The tibia was then impacted into place. Excess cement was removed with Halstead's and Joker's. I then proceeded with cementing of the femoral component. The femoral component was also cemented using standard technique. Excess cement was removed. A 10 mm trial insert was then placed into the knee. Upon full extension with a constant axial load placed until the cement had hardened. The patellar component was then cemented. This was held firmly with a compressive device until the cement had dried. When the cement had dried, the knee was taken out of extension. All excess cement was removed from around the prosthesis. I then trialed the knee with a 10 mm insert. The flexion-extension gaps were appropriate. The knee was stable. Given full extension. I decided to go forward with a 10 mm cross-linked cruciate-retaining tibial insert. Polyethylene was then placed on the tibial tray and locked into place. The knee was then reduced. The knee was again further irrigated with sterile saline solution with antibiotic added. The tourniquet was then deflated. Total tourniquet time for the procedure was 38 minutes at 250 mmHg. Final components were Alice Persona size 5 narrow cruciate-retaining femoral component, a size C tibial tray, a 10 mm medial congruent cruciate-retaining polyethylene insert and a 26 x 7.5 mm patella. I then proceeded with closure. Again, the knee was thoroughly irrigated. The quadriceps tendon and the medial retinaculum were reapproximated with #2 Ethibond suture. The extensor mechanism was then closed with a running.#2 Quill suture. Subcutaneous tissues were closed with 2-0 Vicryl interrupted suture. The skin was closed with a running 3-0 Quill suture. Dermabond was applied to the incision. Sterile compressive dressing was then applied. All sponge and needle counts were deemed correct prior to closure. The patient tolerated procedure without apparent complication. She was transferred recovery room in stable condition. MMODL / IJN: [id number] /
[2020-07-28] MEDS ORDERED: LACTATED RINGERS 1,000 ML IV ONE (11:54)
--- NOTE | 2020-07-28 14:03 | XR ---
EXAMINATION TYPE: XR knee limited RT DATE OF EXAM: 07/28/2020 CLINICAL HISTORY: Right knee pain and arthritis status post total knee replacement. TECHNIQUE: Portable AP and crosstable lateral views of the right knee are obtained immediately posto peratively. COMPARISON: None FINDINGS: Metallic hardware from total right knee arthroplasty is seen and appears satisfactory in a lignment and position. There is evidence of recent surgery with diffuse subcutaneous gas and cutaneo us irregularity. No expected radiopaque foreign body. IMPRESSION: METALLIC HARDWARE FROM TOTAL RIGHT KNEE ARTHROPLASTY IS SATISFACTORY IN ALIGNMENT.
--- NOTE | 2020-07-28 14:16 | P.CONS ---
History of Present Illness - Reason for Consult Consult date: 07/28/20 HTN Requesting physician: Jarad Jules - Chief Complaint knee pain - History of Present Illness Patient is a 74-year-old female with hypertension, dyslipidemia, and osteoarth ritis who presented for elective right total knee arthorplasty. Patient seen and examined at bedside. No chest pain, SOB, nausea, vomiting, or dizziness. Decided to have knee done as increased pain over the last few years. Recently had her right knee done in April 2020. No cane or walker use prior to surgery. Review of Systems Pertinent positives and negatives as discussed in HPI, a complete review of systems was performed and all other systems are negative. Past Medical History Past Medical History: Hyperlipidemia, Hypertension, Osteoarthritis (OA) Additional Past Medical History / Comment(s): insomnia History of Any Multi-Drug Resistant Organisms: None Reported Past Surgical History: Hysterectomy, Joint Replacement, Orthopedic Surgery Additional Past Surgical History / Comment(s): bunionectomy ehsan feet, left knee replaced 04-21-20 Past Anesthesia/Blood Transfusion Reactions: Motion Sickness Smoking Status: Former smoker Additional History: No cane of walker - Past Family History Father Family Medical History: Cancer Medications and Allergies Home Medications Medication Instructions Recorded Confirmed Type Aspirin [Adult Low Dose Aspirin EC] 81 mg PO DAILY 04/20/20 07/28/20 History Cholecalciferol (Vitamin D3) 50 mcg PO DAILY 04/20/20 07/28/20 History [Vitamin D3] Multivitamins, Thera [Multivitamin 1 tab PO DAILY 04/20/20 07/28/20 History (formulary)] Sertraline [Zoloft] 50 mg PO DAILY 04/20/20 07/28/20 History Simvastatin [Zocor] 20 mg PO DAILY 04/20/20 07/28/20 History lisinopriL 20 mg PO DAILY 04/20/20 07/28/20 History traZODone HCL 50 mg PO HS 04/20/20 07/28/20 History Allergies Allergy/AdvReac Type Severity Reaction Status Date / Time No Known Allergies Allergy Verified 07/28/20 08:05 Physical Exam Osteopathic Statement: *. No significant issues noted on an osteopathic structural exam other than those noted in the History and Physical/Consult. Vitals: Vital Signs Temp Pulse Pulse Resp BP Pulse Ox 07/28/20 11:47 65 18 98/56 95 07/28/20 11:32 64 18 98/53 95 07/28/20 11:17 63 16 100/56 97 07/28/20 11:01 66 18 92/50 97 07/28/20 10:51 97.6 F 75 16 104/56 93 L 07/28/20 08:35 70 16 119/73 94 L 07/28/20 08:25 67 16 102/58 95 07/28/20 08:02 97.2 F L 72 16 169/80 95 Intake and Output 07/27/20 07/28/20 07/28/20 22:59 06:59 14:59 Intake Total 1051 Output Total 100 Balance 951 Intake: IV 1051 Output: Estimated Blood Loss 100 Other: Weight 60 kg General: non toxic, no distress, appears older than stated age Derm: warm, dry, dressing in place over right knee Head: atraumatic, normocephalic, symmetric Eyes: EOMI, no lid lag, anicteric sclera, pupils equal round reactive to light ENT: Nose and ears atraumatic, no thrush, no pharyngeal erythema Neck: No thyromegaly, no cervical lymphadenopathy, trachea midline, supple Mouth: no lip lesion, mucus membranes moist Cardiovascular: S1S2 reg, no murmur, positive posterior tibial pulse bilateral, no edema, capillary refill less than 2 seconds Lungs: clear to ascultation bilateral, no ronchi, no rales, no wheeze, no accessory muscle use Abdominal: soft, nontender to palpation, no guarding, no appreciable organomegaly, normal bowel sounds Ext: no gross muscle atrophy, muscle strength muscle strength 5 out of 5 in upper extremities, no contractures Neuro: CN II-XI grossly intact, light touch intact all 4 extremities, finger to nose within normal limits, Psych: Alert, oriented, appropriate affect Assessment and Plan Assessment: Patient is a 74 yo CF here for left total knee arthroplasty. HTN, controlled - follow BP - resume home lisinopril HLD - Statin Insomnia - Trazodone Thank you for allowing us to participate in the care of this pleasant patient. Do not hesitate to contact us with questions. Someone can be reached from the [facility] hospitalist group all hours of the day at [phone] or via perfect serve.
[2020-07-28 20:23] VITALS: RESP 14
[2020-07-28] MEDS: ASPIRIN 81 MG PO SCH (20:29)
[2020-07-28] MEDS ORDERED: SENNOSIDES-DOCUSATE SODIUM 1 EACH TAB PO SCH (21:00)
[2020-07-28] MEDS ORDERED: traZODone HCL 50 MG TAB PO SCH (21:00)
[2020-07-29] MEDS: HYDROcodone/APAP 10-325MG 1 EACH TAB PO PRN ×3 (00:15→14:14)
[2020-07-29 01:44] VITALS: BP 156/80; TEMP 98.2
[2020-07-29 06:36] LABS: Basophils % (A) 0 %; Eosinophils % (A) 0 %; HGB 11.4 gm/dL (11.4-16.0); Lymphocytes # (A) 1.3 k/uL (1.0-4.8); Lymphocytes % (A) 11 %; MCH 29.5 pg (25.0-35.0); MCHC 32.5 g/dL (31.0-37.0); MCV 90.8 fL (80.0-100.0); Mean Platelet Volume 6.8; Monocytes # (A) 0.6 k/uL (0-1.0); Monocytes % (A) 5 %; Neutrophils # (A) 9.8 k/uL (1.3-7.7); Neutrophils % (A) 83 %; Platelet Count 292 k/uL (150-450); RBC 3.85 m/uL (3.80-5.40); RDW 13.9 % (11.5-15.5); WBC 11.8 k/uL (3.8-10.6)
[2020-07-29 07:12] VITALS: PULSE 116
[2020-07-29] MEDS: ASPIRIN 81 MG PO SCH (07:46)
--- NOTE | 2020-07-29 07:46 | P.PN ---
Progress Note - Text 07/29/20 706am 74-year-old female status post total knee replacement by Dr. Jules. Patient seen and evaluated this morning with On-Q pump, with the solution running at 8 mL an hour with a VAS of 2. Plan to continue On-Q pump infusion
[2020-07-29] MEDS ORDERED: ATORVASTATIN 10 MG TAB PO SCH (09:00)
[2020-07-29] MEDS ORDERED: MULTIVITAMINS, THERA 1 EACH TAB PO SCH ×2 (09:00→12:00)
[2020-07-29] MEDS ORDERED: SERTRALINE 50 MG TAB PO SCH (09:00)
[2020-07-29] MEDS ORDERED: CHOLECALCIFEROL 400 UNIT TAB PO SCH (09:00)
[2020-07-29] MEDS ORDERED: lisinopriL 20 MG TAB PO SCH (09:00)
--- NOTE | 2020-07-29 10:23 | P.DS ---
Providers Expected date of discharge: 07/29/20 Attending physician: Jarad Jules Consults: 07/28/20 12:21 Consult Physician Routine Consulting Provider: Renetta Meza Consult Reason/Comments: post op medical management Do you want consulting provider notified?: Yes Primary care physician: Damir Vega - Discharge Diagnosis(es) (1) S/P total knee arthroplasty Patient was admitted to the OR on 07/28/2020 to undergo a right total knee arthroplasty. She had failed conservative measures as an outpatient and desired to proceed with elective surgery after given informed consent. She underwent the above procedure which she tolerated well without complication. Postoperative hospital course has remained without complication. On day of discharge she is afebrile, vital signs stable, labs within acceptable ranges, tolerating by mouth meds and diet, voiding without difficulty, positive flatus, denies abdominal pain or calf pain, pain is controlled on oral pain medication and has no new c omplaints. Wound is benign, neurovascular status is intact, calf is soft and nontender, abdomen soft and nontender. Review of systems is negative for numbness, tingling, fever, chills, chest pain, shortness of breath, nausea, vomiting, dizziness, headaches, slurred speech or other. Current Visit: No Status: Acute Priority: Medium Procedures: Right TKA Patient Condition at Discharge: Good Plan - Discharge Summary Discharge Rx Participant: Yes New Discharge Prescriptions: New Aspirin [Adult Low Dose Aspirin EC] 81 mg PO BID #60 tablet. HYDROcodone/APAP 7.5-325MG [[place] 7.5-325] 1 - 2 each PO Q6HR PRN #56 tab PRN Reason: Pain No Action Cholecalciferol (Vitamin D3) [Vitamin D3] 50 mcg PO DAILY traZODone HCL 50 mg PO HS Multivitamins, Thera [Multivitamin (formulary)] 1 tab PO DAILY Simvastatin [Zocor] 20 mg PO DAILY Sertraline [Zoloft] 50 mg PO DAILY lisinopriL 20 mg PO DAILY Aspirin [Adult Low Dose Aspirin EC] 81 mg PO DAILY Discharge Medication List Aspirin [Adult Low Dose Aspirin EC] 81 mg PO DAILY 04/20/20 [History] Cholecalciferol (Vitamin D3) [Vitamin D3] 50 mcg PO DAILY 04/20/20 [History] Multivitamins, Thera [Multivitamin (formulary)] 1 tab PO DAILY 04/20/20 [History] Sertraline [Zoloft] 50 mg PO DAILY 04/20/20 [History] Simvastatin [Zocor] 20 mg PO DAILY 04/20/20 [History] lisinopriL 20 mg PO DAILY 04/20/20 [History] traZODone HCL 50 mg PO HS 04/20/20 [History] Aspirin [Adult Low Dose Aspirin EC] 81 mg PO BID #60 tablet. 07/29/20 [Rx] HYDROcodone/APAP 7.5-325MG [[place] 7.5-325] 1 - 2 each PO Q6HR PRN #56 tab 07/29/20 [Rx] Follow up Appointment(s)/Referral(s): [facility], [NON-STAFF] - As Needed Jarad Jules MD [STAFF PHYSICIAN] - 10 Days Activity/Diet/Wound Care/Special Instructions: Keep wound clean and dry Take meds as directed Follow-up with Dr. Jules in office Weight bear as tolerated May shower in 3 days if no bleeding Discharge Disposition: HOME WITH HOME HEALTH SERVICES
== END 2020-07-29 14:35 | disposition home health service (06) ==
LOC: OR 07:40 → 4SSUR 11:47 → OR 07-29 14:35
PROVIDERS: ATTEND Orthopaedic Surgery Sports Medicine
DX: M17.11 Unilateral primary osteoarthritis, right knee (principal); I10 Essential (primary) hypertension; E78.5 Hyperlipidemia, unspecified; H91.90 Unspecified hearing loss, unspecified ear; F32.9 Major depressive disorder, single episode, unspecified; Z97.3 Presence of spectacles and contact lenses; Z90.710 Acquired absence of both cervix and uterus; Z98.890 Other specified postprocedural states; F41.9 Anxiety disorder, unspecified; Z87.891 Personal history of nicotine dependence; Z96.652 Presence of left artificial knee joint; Z97.2 Presence of dental prosthetic device (complete) (partial); Z80.9 Family history of malignant neoplasm, unspecified; M54.32 Sciatica, left side; G47.00 Insomnia, unspecified; Z79.1 Long term (current) use of non-steroidal anti-inflammatories (NSAID); Z79.82 Long term (current) use of aspirin; Z79.891 Long term (current) use of opiate analgesic; Z79.899 Other long term (current) drug therapy
CPT/HCPCS: 97116; 97161; 64448; 76942; 85025; 88300; 73560; 27447; C1776; C1713; J2250; J0171; J1100; J0690 ×3; J2405; J1885; J2795 ×2; J0735

== ENCOUNTER → 2020-12-22 | Outpatient (CLI) | payer MEDICARE ==
--- NOTE | 2020-12-23 14:50 | MM ---
Reason for exam: screening (asymptomatic). Last mammogram was performed 1 year and 2 months ago. History: Patient is postmenopausal. Family history of breast cancer in maternal aunt at age 50. Benign right mammotome panel of the right breast, June 04, 2005. Took hormonal contraceptives for 1 year. Took estrogen for 6 years. Physical Findings: A clinical breast exam by your physician is recommended on an annual basis and results should be correlated with mammographic findings. MG 3D Screening Mammo W/Cad Bilateral CC and MLO view(s) were taken. Prior study comparison: October 27, 2019, bilateral MG 3d screening mammo w/cad. July 29, 2018, bilateral MG 3d screening mammo w/cad. The breast tissue is heterogeneously dense. This may lower the sensitivity of mammography. There are benign appearing round calcifications bilaterally. Previous mammotome biopsy in the right breast. There is chronic nodularity bilaterally. There is no discrete abnormality. ASSESSMENT: Benign, BI-RAD 2 RECOMMENDATION: Routine screening mammogram of both breasts in 1 year.
== END ==
LOC: RADMAMWWP 14:41
PROVIDERS: ATTEND Internal Medicine
DX: Z12.31 Encounter for screening mammogram for malignant neoplasm of breast (principal); Z80.3 Family history of malignant neoplasm of breast; Z78.0 Asymptomatic menopausal state
CPT/HCPCS: 77063; 77067

== ENCOUNTER → 2022-02-26 | Outpatient (CLI) | payer MEDICARE ==
--- NOTE | 2022-02-26 11:57 | CA ---
Stress Echo Report Willow Dinero Age: 76 Gender: F : 1945 Exam Date: 02/26/2022 09:32 Exam Location: [facility] Ht (in): 61 Wt (lb): 130 Ordering Physician: Faisal Bansal MD Referring Physician: ,, Contract Analyst: Beckie Segovia RDCS Technologist Procedure CPT: Indication: R07.89 chest pain ICD-9 Codes: Rhythm: Patient History: Cardiac Medications: Medications in past 24 hours: Contrast: Stress Results Protocol: Adin Total dose(mL): Exercise Duration (min:sec): Max ST Depression (mm): Angina Score: Abdullahi Score: METS: 9.7 Resting HR: 64 Resting BP: 135 / 85 Peak HR: 132 Peak BP: 157 / 101 Max Predicted HR: 144 92 % Max Predicted HR Target HR: 122 Double Product: [id number] Stress Summary: BP Response: Reason for Termination: Cardiac Symptoms: ECG Analysis Resting ECG: Stress ECG: Arrhythmia: Echo Analysis Resting Echo: Peak Echo Analysis: MEASUREMENTS (Male/Female) Normal Values CONCLUSIONS Good exercise tolerance Mild EKG changes in response to exercise Normal echocardiogram response to exercise Dr. Garfield Lozano MD (Electronically Signed) Final Date: 26 Feb 2022 11:57
== END | disposition home or self-care (01) ==
LOC: RADNMMAIN 09:07
PROVIDERS: ATTEND Internal Medicine
DX: R07.89 Other chest pain (principal)
CPT/HCPCS: 93351

== ENCOUNTER → 2023-04-15 | Outpatient (CLI) | payer MEDICARE ==
--- NOTE | 2023-04-15 10:22 | US ---
EXAMINATION TYPE: US liver DATE OF EXAM: 04/15/2023 COMPARISON: NONE CLINICAL INDICATION: Female, 77 years old with history of R74.8 ABN LEVELS OF OTHER SERUM ENZYMES; el evated ALP TECHNIQUE: Multiple sonographic images of the right upper quadrant are obtained. FINDINGS: EXAM MEASUREMENTS: Liver Length: 12.9 cm Gallbladder Wall: 0.2 cm CBD: 0.3 cm Right Kidney: 9.4x4.6x4.6 cm. Column of Lamin is present. STATIONARY ENGINEER REFRIGERATION NOTES: Pancreas: Tail obscured by overlying bowel gas Liver: wnl Gallbladder: wnl Evidence for sonographic Jules's sign: No CBD: wnl Right Kidney: two anechoic areas noted superior pole: 2.6x2.7x2.5cm inferior pole:2.4x2.4x2.7cm IMPRESSION: 1. Right renal cysts.
== END | disposition home or self-care (01) ==
LOC: RADUSWWP 08:57
PROVIDERS: ATTEND Internal Medicine
DX: N28.1 Cyst of kidney, acquired (principal); R74.8 Abnormal levels of other serum enzymes
CPT/HCPCS: 76705

== ENCOUNTER → 2024-04-13 | Outpatient (CLI) | payer MEDICARE ==
--- NOTE | 2024-04-14 07:22 | XR ---
EXAMINATION TYPE: XR hand complete bilateral DATE OF EXAM: 04/13/2024 COMPARISON: NONE HISTORY: Pain TECHNIQUE: Three views are submitted. FINDINGS: Right hand: There are severe MCP joint arthropathy of all digits most marked involving the second through fourth digit with hypertrophic spurring of the second through third digits. Severe first carpometacarpal and scaphotrapezial joint arthropathy. Mild radiocarpal joint arthropathy. There is moderate DIP and mild PIP joint arthropathy of all digits. No erosive changes. Generalized demineralization. Left hand: There are severe MCP joint arthropathy of all digits most marked involving the second through fourth digit with hypertrophic spurring of the second through third digits. Severe first carpometacarpal and scaphotrapezial joint arthropathy. Mild radiocarpal joint arthropathy. There is moderate DIP and mild PIP joint arthropathy of all digits. No erosive changes. Generalized demineralization. IMPRESSION: 1. Polyarticular bilateral arthropathy most marked involving the first carpometacarpal and MCP joints . Favor osteoarthritis.
== END | disposition home or self-care (01) ==
LOC: RADXRMAIN 16:13
PROVIDERS: ATTEND Internal Medicine
DX: M18.0 Bilateral primary osteoarthritis of first carpometacarpal joints (principal); E06.1 Subacute thyroiditis